=== PATIENT | female | born 1945 ===

== ENCOUNTER 2020-11-04 09:45 | Outpatient (CLI) | payer MEDICARE, OTHER ==
--- NOTE | 2020-11-04 11:58 | Mammography Report ---
DIGITAL SCREENING MAMMOGRAM WITH CAD, 11/04/2020 CLINICAL INFORMATION / INDICATION: Routine screening mammography. SCREENING UNILAT RT TECHNIQUE: Digital right 2D mammography was obtained in the craniocaudal and mediolateral oblique pr ojections. This examination was interpreted with the benefit of Computer-Aided Detection analysis. COMPARISON: 03/05/2017 through 03/22/2019. FINDINGS: Breast Density: There are scattered areas of fibroglandular density. No dominant mass, suspicious calcifications, or architectural distortion in either breast. IMPRESSION: No mammographic evidence of malignancy. Follow up recommendation: Routine yearly BI-RADS Category 1: Negative. A "normal" or negative report should not discourage follow up or biopsy of a clinically significant f inding. A written summary of these findings will be mailed to the patient. The patient will be entered into a mammography reporting system which will generate a reminder letter for the patient's next appointmen t at the appropriate interval. The [employer] recommends yearly mammograms starting at age 40 and continuing as l krista as a woman is in good health. Breast MRI is recommended for women with an approximate 20-25% or greater lifetime risk of breast cancer, including women with a strong family history of breast or ova alesia cancer or who have been treated for Hodgkin's disease. Signer Name: Blayne Moreno MD Signed: 11/04/2020 11:54 AM Workstation Name: [id number]
== END 2020-11-04 09:46 | disposition home or self-care (01) ==
LOC: SPVWC 09:45
PROVIDERS: ATTEND Surgery
DX: Z12.31 Encounter for screening mammogram for malignant neoplasm of breast (principal)

== ENCOUNTER 2021-11-19 09:33 | Outpatient (CLI) | payer MEDICARE, OTHER ==
--- NOTE | 2021-11-20 11:17 | Mammography Report ---
DIGITAL SCREENING MAMMOGRAM WITH CAD, 11/19/2021 CLINICAL INFORMATION / INDICATION: Routine screening TECHNIQUE: Digital right 2D mammography was obtained in the craniocaudal and mediolateral oblique pr ojections. This examination was interpreted with the benefit of Computer-Aided Detection analysis. COMPARISON: 11/04/2020 FINDINGS: Breast Density: There are scattered areas of fibroglandular density. No dominant mass, suspicious calcifications, or architectural distortion in the right breast. IMPRESSION: No mammographic evidence of malignancy. Follow up recommendation: Routine yearly BI-RADS Category 1: NEGATIVE A "normal" or negative report should not discourage follow up or biopsy of a clinically significant f inding. A written summary of these findings will be mailed to the patient. The patient will be entered into a mammography reporting system which will generate a reminder letter for the patient's next appointmen t at the appropriate interval. The [employer] recommends yearly mammograms starting at age 40 and continuing as l krista as a woman is in good health. Breast MRI is recommended for women with an approximate 20-25% or greater lifetime risk of breast cancer, including women with a strong family history of breast or ova alesia cancer or who have been treated for Hodgkin's disease. Signer Name: Minor Persaud MD Signed: 11/20/2021 11:11 AM Workstation Name: [id number]
== END 2021-11-19 09:34 | disposition home or self-care (01) ==
LOC: SPVWC 09:33
PROVIDERS: ATTEND Surgery
DX: Z12.31 Encounter for screening mammogram for malignant neoplasm of breast (principal)